=== PATIENT | male | born 1970 | race Caucasian/White ===

== ENCOUNTER 2021-03-19 12:51 | Outpatient (CLI) | payer BC | END 2021-03-19 12:52 | disposition home or self-care (01) | LOC: CSHSPEC 12:51 | PROVIDERS: ATTEND Urology | DX: C61 Malignant neoplasm of prostate (principal); Z95.0 Presence of cardiac pacemaker | CPT/HCPCS: 71045; 72197 ==

== ENCOUNTER 2023-02-09 07:10 | Outpatient (CLI) | payer BC | END 2023-02-09 07:11 | disposition home or self-care (01) | LOC: CSHSPEC 07:10 | PROVIDERS: ATTEND Urology | DX: Z01.818 Encounter for other preprocedural examination (principal); C61 Malignant neoplasm of prostate; Z95.810 Presence of automatic (implantable) cardiac defibrillator | CPT/HCPCS: 71045; 72197 ==